=== PATIENT | female | born 1960 | race Caucasian/White ===

== ENCOUNTER → 2020-07-09 14:01 | Outpatient (BNVA) | payer OTHER, SELFPAY | PROVIDERS: PCP Internal Medicine; Visit Provider Hospitalist ==

== ENCOUNTER → 2020-07-31 13:59 | Outpatient (REF) | payer OTHER, SELFPAY | LOC: HO.SL 13:59 | PROVIDERS: PCP Internal Medicine; Visit Provider Hospitalist | DX: G47.33 Obstructive sleep apnea (adult) (pediatric) (principal) | CPT/HCPCS: 95806 ==

== ENCOUNTER → 2020-08-31 10:03 | Outpatient (BNVA) | payer OTHER, SELFPAY | PROVIDERS: PCP Internal Medicine; Visit Provider Hospitalist ==

== ENCOUNTER 2020-10-29 10:32 | Outpatient (REF) | payer OTHER, SELFPAY ==
--- NOTE | ~2020-10-29 | CT_ITS ---
EXAMINATION: CT CHEST WITHOUT CONTRAST CLINICAL INFORMATION: Other nonspecific abnormal finding of lung field. COMPARISON: CT chest 12/22/2018 TECHNIQUE: Multidetector volumetric CT imaging of the chest was done. Axial MIP volume rendering provided. Sagittal and coronal reformatted images were obtained. This CT examination was performed using dose optimization techniques as appropriate, variously including the following: *Automated exposure control *Adjustment of mA and/or kV according to patient size (this includes techniques or standardized protocols for targeted exams where dose is matched to indication/reason for exam; i.e. extremities or head) *Use of iterative reconstruction technique DLP: 189 mGy-cm FINDINGS: GRINDER NEEDLE TIP: Unremarkable. LUNGS: The lungs are well expanded and clear of acute pneumonic process. There is a punctate 1 mm calcified nodule left lung apex axial image 71/7. Minimal atelectatic changes are seen in the lingula. A 4 mm nodule is seen in the lingula axial image 391/7, 2 mm calcified nodule right lower lobe axial image 412/7 and a 2 mm calcified nodule right lung base axial image 483/7. No acute consolidation seen. MEDIASTINUM: The thyroid lobes are symmetrical and normal. The central trachea and the bronchi are widely patent. The heart size and the great vessels are normal caliber. There is no pericardial effusion. No abnormal sized mediastinal or hilar lymph nodes seen. The central trachea and the bronchi are widely patent. PLEURA: There is no pleural effusion. No pleural mass or thickening. AXILLA: There are benign lymph nodes seen in the axilla. UPPER ABDOMEN: Visualized liver, spleen, pancreas, and bilateral adrenal glands are unremarkable. No radiopaque gallstone seen. OSSEOUS STRUCTURES: No lytic or sclerotic process seen. There is mild ventral spondylosis at T9-T10 disc level. There is a posterior annular calcification at the T10-T11 disc level. CT/CT chest wo con IMPRESSION: There are small 2 mm calcified nodules scattered throughout both lungs likely granulomas, stable. There is a 4 mm noncalcified nodule in the lingula which is stable. No new nodules or lymph nodes seen.
== END 2020-10-29 10:33 | disposition home or self-care (01) ==
LOC: HO.CT 10:32
PROVIDERS: PCP Internal Medicine; Visit Provider Hospitalist
DX: R91.8 Other nonspecific abnormal finding of lung field (principal); J98.11 Atelectasis; R05 Cough
CPT/HCPCS: 71250

== ENCOUNTER 2020-11-14 13:43 | Outpatient (REF) | payer OTHER, SELFPAY ==
[2020-11-14 14:45] LABS: Influenza A PCR NEGATIVE (Negative); Influenza B PCR NEGATIVE (Negative); Resp Syncy Virus RNA Qual PCR NEGATIVE (Negative); SARS COV2 PCR INHOUSE NEGATIVE (Negative)
== END 2020-11-14 13:44 | disposition home or self-care (01) ==
LOC: HO.LNP 13:43
PROVIDERS: Visit Provider Family Medicine
DX: J02.9 Acute pharyngitis, unspecified (principal); Z20.822 Contact with and (suspected) exposure to COVID-19
CPT/HCPCS: 0241U

== ENCOUNTER → 2020-12-03 14:30 | Outpatient (BNVA) | payer OTHER, SELFPAY | PROVIDERS: PCP Internal Medicine; Visit Provider Hospitalist ==

== ENCOUNTER 2021-09-17 08:41 | Outpatient (REF) | payer OTHER, SELFPAY ==
--- NOTE | ~2021-09-17 | CT_ITS ---
EXAMINATION: CT CHEST WITHOUT CONTRAST CLINICAL INFORMATION: Nonspecific abnormal lung findings. COMPARISON: None TECHNIQUE: Multidetector volumetric CT imaging of the chest was done. Axial MIP volume rendering provided. Sagittal and coronal reformatted images were obtained. This CT examination was performed using dose optimization techniques as appropriate, variously including the following: *Automated exposure control *Adjustment of mA and/or kV according to patient size (this includes techniques or standardized protocols for targeted exams where dose is matched to indication/reason for exam; i.e. extremities or head) *Use of iterative reconstruction technique DLP: 299 mGy-cm FINDINGS: PROVIDER RELATIONS ADVOCATE: Unremarkable chest exam. LUNGS: The lungs are well-expanded. There is a 1 mm punctate nodule left upper lobe axial image 68/9 and right lower lobe 349/9. No additional nodules seen. There is no acute consolidation, mass or ground-glass density. MEDIASTINUM: The thyroid lobes are symmetric and normal. The central trachea and the bronchi are widely patent. The heart size and the great vessels are normal caliber. There is no pericardial effusion. No abnormal size mediastinal or hilar lymph nodes seen. PLEURA: There is no pleural effusion. No pleural mass or thickening. AXILLA: There are small shotty lymph nodes in the axilla. UPPER ABDOMEN: Visualized liver, spleen, pancreas and adrenal glands are unremarkable. No radiopaque gallstone seen. OSSEOUS STRUCTURES: There is no lytic or sclerotic process seen. CT/CT chest wo con IMPRESSION: Punctate calcifications in the right lower lobe and left upper lobe. Otherwise unremarkable CT chest exam. Fleischner guidelines were followed.
== END 2021-09-17 08:42 | disposition home or self-care (01) ==
LOC: HO.CT 08:41
PROVIDERS: PCP Internal Medicine; Visit Provider Hospitalist
DX: R91.8 Other nonspecific abnormal finding of lung field (principal)
CPT/HCPCS: 71250

== ENCOUNTER 2024-04-26 10:32 | Outpatient (AMB) | payer OTHER, SELFPAY ==
[2024-04-26 10:35] VITALS: BP 106/78; PULSE 84; O2SAT 97; BMI 32.5
--- NOTE | 2024-04-26 10:35 | MHC.OFFVIS ---
Vital Signs 04/26/24 10:35 Height 5 ft 5 in Weight 195 lb 1.745 oz BMI 32.5 BP 106/78 Blood Pressure Location Rt brachial Position Sitting Pulse 84 Pulse Source Pulse Oximeter Pulse Oximetry (%) 97 Oxygen Delivery Method Room Air Intake Visit Reasons: pulmonary nodule Allergies No Known Allergies Allergy (Verified 04/26/24 10:40) HPI Comments Details: The patient is a 63-year-old woman with a known history of tobacco dependency who presents with an abnormal CT scan of the chest. Numerous years ago she started developing worsening cough is some minimal dyspnea. She did undergo a CT scan of the chest demonstrating some areas of atelectasis primarily in the level of the lingula. No significant emphysema. She was able to quit smoking little less than 2 years ago. Since her initial CT scan in 2017 she did have a repeat CT scan in 2018. But, due to the pandemic she did not have a 1 in 2019. She did undergo another CT scan of the chest more recently May 2020 which was personally reviewed by me along with the others. It appears that now she has some slight interval worsening of the atelectatic /fibrotic area in the lingula. But now, there appears to be slight nodular density just adjacent to fibrotic area measuring 5-6mm in size. Based on that worsening of the fibrotic area but more concerning is the nodular density associated with it that we need to follow this area closely. The patient is high risk due to her smoking history. She has also noticed increasing cough specially at nighttime. She denies ever having any wheezing although she does have some congestion at times. Her CT scan does demonstrate areas of peribronchial thickening and bronchitis. She does not have any inhalers at this time I do think she should have a least short-acting beta agonists she can use as needed. On further questioning the patient does have daytime drowsiness. She has been having documented snoring and also apneic episodes. Her [place] score is elevated 12/24. The patient needs to have a home sleep study at this time. 08/31/2020 the patient is here for pulmonary follow-up visit. overall the patient is doing well. She continues to have daytime drowsiness with an elevated [place] score of 12/24. Did review her home sleep study demonstrating mild to moderate sleep apnea and significant tachycardia. Patient also has cardiovascular risk factors. The recommendation is for the patient to start CPAP therapy at this. We will set her up with a local [facility]. In the meantime she is concerned about the new nodular density found on her CT scan the chest from May 2020. will plan to do a CT scan 6 months from that 1 to follow-up this new nodular density. 12/03/2020 the patient is here for a pulmonary follow-up visit. Overall the patient has been doing well. She did start her CPAP therapy. However, she cannot tolerated. She has tried multiple settings and different masks without any success. She was asking about other alternatives as she continues to have an elevated [place] score of 12/24. We did talk about positional therapy specially since her sleep apnea as more significant when she is supine. In addition to that I do believe that if she does an oromandibular device in conjunction with a positional device that she would respond well to the therapy. Will make arrangements for her to be referred to a dentist that specializes in sleep devices. In the meantime the patient did have a repeat CT scan of the chest which I personally reviewed and reviewed with her. It appears that the nodular density and atelectasis in the lingula have almost completely resolved which is very reassuring. She still has small pulmonary nodules between 2-4 mm in size mostly calcified. At this point the patient does need to have follow-up CT scan in a year's time. 04/26/2024 the patient is here for a pulmonary follow-up visit. Overall the patient has been doing fairly good. She still struggling with the CPAP. She was not able to use it. She did get an oral mandibular device but that was not helpful either. Now she is on weight management medication to try to lose weight. Hopefully with that we can we repeat her sleep study in the near future to see if her sleep apnea is better. The meantime we did talk about positional therapy. She did have a repeat CT scan of the chest that Edy. We did personally reviewed and compared to her CT scan from 2020. She has multiple nodules larger on measuring 5 mm in the left upper lobe. I compared to 2020 it was initially difficult to see because she had a little airspace disease in 2020 and seem like the airspace disease cleared up. Now the nodules a little bit more clearly seen. Is still around 5 mm in size. Will have to repeat the CT scan in a year from the last 1. The patient also complains of a cough. The cough is tends to be worse when she lays flat to going to bed. We did talk about reflux disease and also talked about postnasal drip. The patient is okay using nasal steroid spray I will send to the pharmacy. She should also sleep elevated and continue with the reflux diet. [facility] Medical History (Updated 04/26/24 @ 21:31 by Raj Mendez MD) JUVENAL (obstructive sleep apnea) Atelectasis Pulmonary nodules Cough Social History (Updated 04/26/24 @ 10:40 by Alyssa Garza CMA) Patient Tobacco Use Status: Former Tobacco user Years Smoked: 25 years Review of Systems Const Reports daytime sleepiness, Denies night sweats and Reports snoring ENT Denies change in voice, Denies lip swelling, Denies mouth pain, Reports nasal congestion, Reports nasal discharge and Denies tongue swelling Card Denies chest pain Resp Reports cough and Reports snoring GI Denies abdominal pain Musc Denies no additional complaints Neuro Denies Neuro-related abnormal movements Psych Denies no additional complaints Chad/Lymph Denies easy bleeding and Denies lymphadenopathy Aller/Immun Denies lip swelling and Denies tongue swelling Physical Exam Vital Signs: Last Vital Signs Pulse 84 04/26/24 10:35 BP 106/78 04/26/24 10:35 Pulse Ox 97 04/26/24 10:35 Oxygen Delivery Method Room Air 04/26/24 10:35 BMI result Body Mass Index 32.5 Const General: alert Eyes Pupils: Equal, round and reactive pupils present Neck Neck: Yes normal visual inspection, Yes full ROM and Yes no lymphadenopathy Chest Chest palpation & inspection: normal inspection of the chest Resp Auscultation: diminished lung sounds Cardio Rate: regular rate Rhythm: regular rhythm Heart sounds: S1 normal heart sound present and S2 normal heart sound present GI Palpation (GI): Soft to palpation and nontender Auscultation: normal bowel sounds Skin General skin exam: rashes and/or lesions noted Neuro Cranial nerves: Yes Equal, round and reactive pupils present Assessment & Plan Assessment & Plan (1) JUVENAL (obstructive sleep apnea): Code(s): G47.33 - Obstructive sleep apnea (adult) (pediatric) Category: Medical (2) Atelectasis: Code(s): J98.11 - Atelectasis Category: Medical Plan: improved on her last ct chest (3) Pulmonary nodules: Code(s): R91.8 - Other nonspecific abnormal finding of lung field Category: Medical (4) Cough: Code(s): R05 - Cough Category: Medical Qualifiers: Cough type: chronic Qualified Code(s): R05.3 - Chronic cough Plan Failed CPAP therapy, does not tolerate it. Posiitonal therapy CT chest 1 year ALBARO as needed F/U 1 year Orders: Orders CT chest wo IV con 03/13/25 R91.8 - Other nonspecific abnormal finding of lung field Medications: New fluticasone propionate 50 mcg/actuation 2 sprays intranasal DAILY 30 days 15.8 mL 11RF J31.0 - Chronic rhinitis, R91.8 - Other nonspecific abnormal finding of lung field Coding Level of Care Code Est Pt Level 4 (71580) Diagnoses JUVENAL (obstructive sleep apnea) G47.33 Atelectasis J98.11 Pulmonary nodules R91.8 Chronic cough R05.3 Cough type: chronic Time Spent (min) 17
--- OUTSIDE RECORDS SUMMARY | 2024-04-26 11:32 | XMS_ITS | Encounter Summary ---
Author Organization [facility] Address [address] [place] [address] Care Team Providers Care Boat Hoist Operator Helper Name Role Phone Justin Espinoza MD Primary Care Provider [phone] Encounter Details Date Type Department Care Team (Late st Contact Info) Description 12/28/2023 9:34 AM EDT Hospital Encounter TH HISTORIC ENCOUNTERS EASTERN CONVERSION ONLY Social History Tobacco Use Types Packs/Day Years Used Date Smoking Tobacco: Former Alcohol Use Standard Drinks/Week Comments Yes 8.3 (1 standard drink = 0.6 oz p ure alcohol) Comments Unknown Sex and Gender Information Value Date Recorded Sex Assigned at Female 2023 10:41 AM EDT Legal Sex Female 4:53 PM EST Gender Identity Female 2023 10:41 AM EDT Sexual Orientation Straight 2023 10 :41 AM EDT documented as of this encounter Last Filed Vital Signs Vital Sign Reading Time Taken Comments Blood Pressure - - Pulse - - Temperature - - Respiratory Rate - - Oxygen Saturation - - Inhaled Oxygen Concentration - - Weight 87 kg (191 lb 12.8 oz) 07/13/2023 9:34 AM EDT Height - - Body Mass Index - - documented in this encounter Progress Notes * Historical, Notes Results - 12/28/2023 10:00 AM EDT 1000- Patient arrives, ambulatory to unit for every 8 week Entyvio infusion. She reports feeling well. Denies any new issues with her bowels and feels everything is the same. Denies any recent diarrhea, pain, bloating, etc. Patient has no questions or concerns at this time. Medication released from treatment plan to pharmacy. Peripheral IV established without difficulty and flushed/saline locked for later use. Patient remains comfortable in recliner watching TV. 1033- IV flushed and 250 mls NS flush bag hung, then Entyvio hung, infusing over 30 minutes per protocol. Patient comfortable in recliner and has call meyers in reach. ?? 1119- Completed the remainder of the Entyvio without any difficulty. Peripheral IV removed, pressure dressing applied to site. Next appointment booked previously but re-printed and given to patient at discharge per her request. She left the unit stable, ambulatory without questions or concerns. documented in this encounter Plan of Treatment Upcoming Encounters Date Type Department Care Team (Late st Contact Info) Description 05/02/2024 9:00 AM EST Appointment [facility] Ultrasound [address] [place] [address] 06/13/2024 9:30 AM EDT Appointment [facility] Infusion Center [address] [facility] [address] [place] [address] Constantine Santos MD [address] [address] documented as of this encounter Visit Diagnoses Not on filedocumented in this encounter Care Teams Boat Hoist Operator Helper Relationship Specialty Start Date End Date Justin Espinoza MD [address] [place] [id number] PCP - General 09/30/12 documented as of this encounter
--- OUTSIDE RECORDS SUMMARY | 2024-04-26 11:32 | XMS_ITS | Clinical Summary ---
Author Organization [facility] Address [address] [place] [address] Care Team Providers Care Implementation Manager Name Role Phone Justin Espinoza MD Primary Care Provider + [phone] Allergies No known active allergies Medications Medication Sig Dispensed Refills Start Date End Date Status ALPRAZolam (XANAX) 0.5 MG tablet alprazolam 0.5 mg tablet TAKE 1 TABLET BY MOUTH EVERY 12 HOURS NEEDED 0 03/12/2015 Active rosuvastatin (CRESTOR) tablet 20 mg 0 08/07/2022 Active levothyroxine (SYNTHROID) tablet 88 mcg levothyroxine 88 mcg tablet TAKE 1 TABLET BY MOUTH EVERY DAY 0 08/18/2021 Active lisinopril (PRINIVIL,ZESTRIL) tablet 20 mg lisinopril 20 mg tablet TAKE 1 TABLET BY MOUTH EVERY DAY 0 12/16/2016 Active ursodiol (ACTIGALL) 500 MG tablet ursodiol 500 mg tablet TAKE 2 TABLETS BY MOUTH EVERY DAY 0 02/27/2015 Active DULoxetine (CYMBALTA) DR capsule 60 mg duloxetine 60 mg capsule,delayed release TAKE 1 CAPSULE BY MOUTH EVERY DAY 0 02/22/2015 Active RABEprazole (ACIPHEX) 20 MG tablet rabeprazole 20 mg tablet,delayed release TAKE 1 TABLET BY MOUTH EVERY DAY 0 03/10/2009 Active vedolizumab (Entyvio) 300 MG SOLR injection Entyvio 300 mg intravenous solution every other month 0 03/10/2013 Active semaglutide-weight management (Wegovy) 0.25 MG/0.5ML subcutaneous auto-injector Inject under the skin. 0 Active Active Problems Problem Noted Date Diagnosed Date Crohn disease 08/08/2022 Social History Tobacco Use Types Packs/Day Years Used Date Smoking Tobacco: Never Assessed Sex and Gender Information Value Date Recorded Sex Assigned at Female 08/05/2022 4:33 PM EDT Gender Identity Female 05/18/2023 3:22 PM EDT Sexual Orientation Straight 05/18/2023 3: 22 PM EDT Job Start Date Occupation Industry Not on file Not on file Not on file Last Filed Vital Signs Vital Sign Reading Time Taken Comments Blood Pressure 112/72 12/28/2023 9:43 AM EDT Pulse 76 12/28/2023 9:43 AM EDT Temperature 36.9 ??C (98.4 ??F) 12/28/2023 9:43 AM ED T Respiratory Rate 16 12/28/2023 9:43 AM EDT Oxygen Saturation 97% 12/28/2023 9:43 AM EDT Inhaled Oxygen Concentration - - Weight 87 kg (191 lb 12.8 oz) 07/13/2023 9:34 AM EDT Height - - Body Mass Index - - Plan of Treatment Health Maintenance Due Date Last Done Comments Hepatitis C Screening 1960 COVID-19 Vaccine (#1) 07/01/1963 Depression Screening 1974 Preventative Health Evaluation 1980 DTap / Tdap / Td (1 - Tdap) 1981 Cervical Cancer Screening (Pap Smear) 12/31/1983 Colon Cancer Screening (Colonoscopy) 12/31/2007 Breast Cancer Screening (Mammogram) 2012 Shingrix-Zoster Vaccine (1 o f 2) 2012 Influenza Vaccine (#1) 2023 0, 03/27/2015 RSV Adult > 60+ Yrs or (1 - 1-dose 75+ series) 2037 Hepatitis B Vaccines Aged Out No long er eligible based on patient's age to complete this topic Pneumococcal Vaccine Aged Out No long er eligible based on patient's age to complete this topic RSV Ped < 20 months Aged Out No longe r eligible based on patient's age to complete this topic Care Teams Implementation Manager Relationship Specialty Start Date End Date Justin Espinoza MD [address] [facility] [address] [place] [address] PCP - General Internal Medicine 07/30/22
--- OUTSIDE RECORDS SUMMARY | 2024-04-26 11:32 | XMS_ITS | Clinical Summary ---
Author Organization [facility] Address [address] [place] [address] Care Team Providers Care Disc Recordist Name Role Phone Pcp, No Primary Care Provider Unavailabl e Social History Tobacco Use Types Packs/Day Years Used Date Smoking Tobacco: Never Assessed Sex and Gender Information Value Date Recorded Sex Assigned at Not on file Gender Identity Not on file Sexual Orientation Not on file Plan of Treatment Health Maintenance Due Date Last Done Comments Hepatitis C Virus Screening 1962 HIV Screening 12/31/1975 DTaP/Tdap/Td Vaccines (1 - Tdap) 1981 Pneumococcal Vaccines 50+ (1 of 1 - PCV) 2012 Zoster (Shingles) Vaccine (1 of 2) 2012 COVID-19 Vaccine (1 - 2023-2 5 season) 2023 RSV Vaccine 60 years and old er and Patients (1 - 1-dose 75+ series) 2037 Hepatitis B Vaccines Aged Out No long er eligible based on patient's age to complete this topic Pneumococcal Vaccine: Pediat bettina (0-5 Years) and At-Risk Patients (6 to 49 Years) Aged Out No longer eligible b ased on patient's age to complete this topic Care Teams Disc Recordist Relationship Specialty Start Date End Date Pcp, No [address] [place] [address] PCP - General 07/14/20
--- OUTSIDE RECORDS SUMMARY | 2024-04-26 11:32 | XMS_ITS | Data Portability ---
Author Organization [place] - [facility],, RE CLEMENTS MD Address [address] [address] Care Team Providers Care Group Activities Aide Name Role Phone NICOLE ROPER Primary Care Provider Assessment No assessment recorded. Plan of Treatment Reminders Order Date Submit Date Provider Last Modified By Organization Details Last Modified Time Details Appointments ANNUAL EXAM 2024 10:00A M Re Clements MD Not available Not available Not available Lab wet mount, vaginal 2024 025 [email or web address] 1 In-Office Order, Internal Use Only DO Not Attach Compendium DO Not Attach Compendium, Do Not Delete/merge, [id number] 03/11/2024 10:24:27 pap test, thinprep , cervical 2022 023 [email or web address] [facility], [address] [place], [address], 02/10/2023 07:32:39 pap test, thinprep , cervical 2021 022 [email or web address] [facility], Cytopathology Service, [address] [place], [address], 08/26/2021 07:42:26 urinalys is, dipstick 2021 022 [email or web address] 1 In-Office Order, Internal Use Only DO Not Attach Compendium DO Not Attach Compendium, Do Not Delete/merge, [id number] 08/12/2021 17:17:49 culture, urine 2021 022 [facility], [address] [place], [address], 08/13/2021 12:42:06 pap test, thinprep , cervical 2019 020 [email or web address] [facility], Cytopathology Service, [address] [place], [address], 02/20/2020 07:54:15 Referral None recorded . Procedures None recorded . Surgeries None recorded . Imaging bone density 2022 023 [facility] Orders, [address], [place], [address], 01/22/2024 07:27:48 MAMMO, screenin g, digital, bilatera l - Breast Aspirati on and/or Biopsy if needed 2022 023 [facility] Orders, [address], [place], [address], 01/22/2024 07:27:48 MAMMO, screenin g, digital, bilatera l 2021 022 [facility], [address] [place], [address], 12/05/2022 07:28:36 MAMMO, screenin g, digital, bilatera l 2019 020 [facility] (Mammography), [address] [place], [address], 02/07/2021 07:23:27 Medication Orders terconaz ole 0.4 % vaginal cream 2024 025 [facility] #[id number], [address] [facility], [place], [address], 03/11/2024 10:27:24 triamcin olone acetonid e 0.1 % topical ointment 2024 025 [facility]/Pharmacy #[id number], [address] [facility], [place], [address], 03/11/2024 10:24:29 Patient TargetsNo targets recorded. Patient Instructions Encounter Date Encounter Id Patient Instructions Last Modified By Organization Details Last Modified Time 02/13/2020 [id number] Quitting Tobacco : Care Instructions Not available 02/13/2020 15:25:07 learning about healthy weight Not available 02/13/2020 15:25:07 crohn's disease: care instructions Not available 02/13/2020 15:25:23 She is here as a new patient for annual exam. She had a supracervical hysterectomy in the remote past for bleeding issues which worked well for her. No significant vasomotor symptoms. Mild nocturia. She has Crohn's, has an annual colonoscopy. 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 She appears to be doing well. She is advised to get 1500 mg of calcium daily into her diet and supplements combined. We discussed the benefits of adequate vitamin D supplementation to at least 400 units daily, daily aerobic exercise of 30 minutes, and stress reduction. Monthly self breast exam was taught, and stressed, and is advised to call if she discovers any new mass in the breast. Not available 02/13/2020 15:27:11 08/12/2021 [id number] learning about healthy weight Not available 08/12/2021 15:41:56 She is here for annual exam, is doing well but for the past 3 days has had suprapubic vague discomfort, has Crohn's and wonders if it is that. Has had a hysterectomy. No fevers or chills. note from 2020: She is here as anew patient for annual exam. She had a supracervical hysterectomy in the remote past for bleeding issues which worked well for her. No significant vasomotor symptoms. Mild nocturia. She has Crohn's, has an annual colonoscopy. 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 Urine dip has small amount of leuk, check culture. She is advised her symptoms could be GI, and to follow up with her GI doctor to see if this could be Crohn's or diverticulitis. We will let her know the results of the urine culture. She has no dysuria, hematuria, frequency or urgency. She appears to be doing well. She is advised to get 1500 mg of calcium daily into her diet and supplements combined. We discussed the benefits of adequate vitamin D supplementation to at least 400 units daily, daily aerobic exercise of 30 minutes, and stress reduction. Monthly self breast exam was taught, and stressed, and is advised to call if she discovers any new mass in the breast. [email or web address] Not available 08/12/2021 17:19:41 01/27/2023 [id number] learning about healthy weight [facility] Not available 01/27/2023 08:24:33 She is here for annual, doing well, going to retire this year. ___ Note from 2021: She is here for annual exam, is doing well but for the past 3 days has had suprapubic vague discomfort, has Crohn's and wonders if it is that. Has had a hysterectomy. No fevers or chills. She appears to be doing well. Monthly self breast exam was taught, and stressed, and is advised to call if she discovers any new mass in the breast. check baseline bone density. [email or web address] Not available 01/27/2023 08:26:01 03/11/2024 [id number] vaginal yeast infection: care instructions [facility] Not available 03/11/2024 10:24:27 She is here for a one year history of worsening vulvar discomfort , pruritus, and occasional burning pain and dysuria. Wet alexander show yeast, I called in the diflucan but then she notes that makes her nauseous so we changed it to terazol 7. Rx aristocort for symptomatic lichen sclerosis, she is overdue for annual so will return next month for that and we can reassess at that time. If not improving enough then may consider adding in estradiol vaginal cream for the atrophy. All this was explained in detail, all questions answered. Face to face discussion, chart review and coordination of care: 25 minutes heydi Not available 03/11/2024 11:02:00 Reason for Referral None Reported. Results Created Date Observation Date Name Description Value Unit Range Abnormal Flag Note LastModifiedBy Organization Detail LastModifiedTime 02/13/20 20 02/13/2020 pap test, thinp rep, cervi bree [id number] ThinP rep Pap, Image d: NEGAT MIA FOR SQUAM OUS INTRA EPITH ELIAL LESIO N AND MALIG ARLENE . Atrop hy. Kathl een Keith a , CT( CP) (Case elect jessica rogers risa d 02 15 2020) ADEQU ACY: Satis facto ry . SOURC E: ThinP rep Pap HPV IF ASCUS , Cervi bree, Image d CLINI BREE INFOR MATIO N: HPV If Diagn osis of ASCUS . HYSTE RECTO MY, CERVI X IN PLACE . Z12.4 Not Available [facility] Cytopathology Service [address] [place], [address], 02/15/2020 12:21:02 08/13/19 22 08/12/2021 URINE CULTU RE comments [facility] maggy villegas, a membe r of [employer]án [place] [address] Medic al Direc teri soto MD [facility] E: URINE ,YARIEL N CATCH ; Not Available [facility] [address] [place], [address], 08/13/2021 12:42:06 08/13/19 22 08/13/2021 URINE CULTU RE urine culture [facility] maggy villegas, a membe r of [facility] [address] Streetjulián [place] [address] Medic al Direc MD ALEJANDRA Herrera CTION TIME: 022 3:00: 00 PM -04:0 0 URINE CULTU RE <10,0 00 CFU/m L F URINE CULTU RE LEV L SKIN/ UROGE NITAL SAGRARIO PRESE NT. F Not Available [facility] [address] [place], [address], 08/13/2021 12:42:06 08/13/19 22 08/12/2021 PAP1C ASE [email or web address] ThinP rep Pap, Image d: NEGAT MIA FOR SQUAM OUS INTRA EPITH ELIAL LESIO N AND MALIG ARLENE . React mia cellu lar osborn es. Atrop hy with infla mmati on is prese nt. Abund ant parti ally obscu ring acute infla mmato ry cells are prese nt. Jaswinder Felix r , CT( CP) (Case Scree isha 08 21 2021) Ernie layne M.D. , Patho logis t (Case elect jessica rogers risa d 08 22 2021) ADEQU ACY: Satis facto ry Endoc ervic al/tr ansfo rmati on zone compo nent prese nt. SOURC E: ThinP rep Pap HPV IF Ascus : Refle x 16 and 18, Cervi bree, Image d CLINI BREE INFOR MATIO N: HPV If Diagn osis of ASCUS . Hyst- cx in place , Z12.4 Not Available [facility] Cytopathology Service [address] [place], [address], 08/23/2021 08:01:08 08/13/19 22 08/12/2021 urina lysis , dipst ick GLU Negati ve Not Available In-Office Order Internal Use Only DO Not Attach Compendium DO Not Attach Compendium, Do Not Delete/merge, [id number] 08/12/2021 15:42:13 08/13/19 22 08/12/2021 urina lysis , dipst ick RICHARD Negati ve Not Available In-Office Order Internal Use Only DO Not Attach Compendium DO Not Attach Compendium, Do Not Delete/merge, [id number] 08/12/2021 15:42:13 08/13/19 22 08/12/2021 urina lysis , dipst ick KET Negati ve Not Available In-Office Order Internal Use Only DO Not Attach Compendium DO Not Attach Compendium, Do Not Delete/merge, 08/12/2021 15:42:13 08/13/19 22 08/12/2021 urina lysis , dipst ick SG 1.020 Not Available In-Office Order Internal Use Only DO Not Attach Compendium DO Not Attach Compendium, Do Not Delete/merge, 08/12/2021 15:42:13 08/13/19 22 08/12/2021 urina lysis , dipst ick BLO Negati ve Not Available In-Office Order Internal Use Only DO Not Attach Compendium DO Not Attach Compendium, Do Not Delete/merge, 08/12/2021 15:42:13 08/13/19 22 08/12/2021 urina lysis , dipst ick pH 5.0 Not Available In-Office Order Internal Use Only DO Not Attach Compendium DO Not Attach Compendium, Do Not Delete/merge, 08/12/2021 15:42:13 08/13/19 22 08/12/2021 urina lysis , dipst ick PRO Negati ve Not Available In-Office Order Internal Use Only DO Not Attach Compendium DO Not Attach Compendium, Do Not Delete/merge, 08/12/2021 15:42:13 08/13/19 22 08/12/2021 urina lysis , dipst ick URO 0.2 E.U. / dl Not Available In-Office Order Internal Use Only DO Not Attach Compendium DO Not Attach Compendium, Do Not Delete/merge, 08/12/2021 15:42:13 08/13/19 22 08/12/2021 urina lysis , dipst ick NIT negati ve Not Available In-Office Order Internal Use Only DO Not Attach Compendium DO Not Attach Compendium, Do Not Delete/merge, 08/12/2021 15:42:13 08/13/19 22 08/12/2021 urina lysis , dipst ick BARBARA Small Not Available In-Office Order Internal Use Only DO Not Attach Compendium DO Not Attach Compendium, Do Not Delete/merge, 08/12/2021 15:42:13 08/14/19 22 08/13/2021 URINE CULTU RE comments [facility] at[facility] es, a membe r of [facility] [address] [place] [address] Medic al [facility] teri soto MD SOURC E: URINE ,YARIEL N CATCH ; Not Available [facility] [address] [place] [address], [address], 08/14/2021 14:21:58 08/14/19 22 08/14/2021 URINE CULTU RE urine culture [facility], a membe r of [facility] [address] [place], [place] [address] Medic al [facility] teri soto MD [facility] CTION TIME: 022 2:00: 00 PM -04:0 0 URINE CULTU RE <10,0 00 CFU/m L F URINE CULTU RE MIXED GROWT H F URINE CULTU RE SUGGE STIVE OF POSSI BLE CONTA MINAT ION DURIN G COLLE CTION . F URINE CULTU RE SUGGE ST APPRO PRIAT E RECOL LECTI ON IF CLINI FELY INDIC ATED. F Not Available [facility] [address] [place] [address], [address], 08/14/2021 14:21:58 01/28/20 23 01/27/2023 [facility] CYTOL OGY results Mollygarcia nt Name: COSME FLOWERS nt : [birth year] (Age: 62) Lab Acces yelitza #: [id number] Colle ction Date: 01/27 Acces yelitza Date: 01/27 Sign Out Date: 02/04 Tissu e Sourc e: 1: THINP REP GUIDE PAP TEST, CERVI BREE: Final Diagn osis: NEGAT MIA FOR INTRA EPITH ELIAL LESIO N OR MALIG ARLENE . Atrop hy. Satis facto ry for evalu ation . Clini bree Histo ry: Date of Last Menst rual Perio d: not avail able Menst rual Histo ry: Post- menop ausal Contr acept mia Histo ry: not avail able Ancil royal Testi ng: HPV (ASCU S) Case image d by the ThinP rep Blazei ng Systgarcia m with azeb ramos or marito washing[place] Perfo rmed at [facility] ate Refer ence Labor atory depar tment of Cytol ogy, [address] Ravindra bella [place] Clini bree Histo ry (othe r): Z01.4 19, ROUTI NE SCREE N, LPS 08/12 NEG Phone #: [phone], On-Ca ll Patho logis t: [id number] Not Available [facility] [address], [place], [place], [address], 02/04/2023 13:49:55 03/11/1903/11/2024 wet mount , vagin al Clue Cells negati ve Not Available In-Office Order Internal Use Only DO Not Attach Compendium DO Not Attach Compendium, Do Not Delete/merge, 03/11/2024 10:22:09 03/11/19 25 03/11/2024 wet mount , vagin al Trichomonas negati ve Not Available In-Office Order Internal Use Only DO Not Attach Compendium DO Not Attach Compendium, Do Not Delete/merge, 03/11/2024 10:22:09 03/11/1903/11/2024 wet mount , vagin al Hyphae positi ve Not Available In-Office Order Internal Use Only DO Not Attach Compendium DO Not Attach Compendium, Do Not Delete/merge, 03/11/2024 10:22:09 03/11/19 25 03/11/2024 wet mount , vagin al atrophic epithelium positi ve Not Available In-Office Order Internal Use Only DO Not Attach Compendium DO Not Attach Compendium, Do Not Delete/merge, 03/11/2024 10:22:09 07/16/19 22 07/15/2021 MAMMO , scree sherlyn, digit al, bilat eral No observ ation record ed. [facility] [address], [place], [address], 07/15/2021 09:25:35 12/31/19 23 2022 MAMMO , scree sherlyn, digit al, bilat eral No observ ation record ed. [facility] [place] [address] [place], [address], 2022 08:33:42 04/08/19 25 04/08/2024 MAMMO , scree sherlyn, digit al, bilat eral No observ ation record ed. [facility] [place] [address] [place], [address], 04/10/2024 19:14:04 Result Notes None recorded. Problems Name Problem SNOMED Code Status Onset Date Resolution Date Notes Provider Name and Address Organization Details Recorded Time Hypothyroidism 51795009 Active 2019 Lashawn zamora [place] - [facility], 0 11:43:26 Hypertensive disorder 64039071 Active 2019 Lashawn zamora [place] - [facility], 0 11:43:52 Crohn's disease 52172653 Active 2019 Lashawn zamora [place] - [facility], 0 11:44:06 Genital lichen sclerosus 482988915 Active 2024 Re Clements MD [address] [place] [address],[facility] [address], [place], [address] [facility] [place] - [facility], 5 10:23:17 Problem Notes None recorded. Procedures Surgical History Date Name Laterality Status Provider Name and Address Organization Details Recorded Time 12/10/19 23 Most Recent Mammogram completed Lashawn Butt [place] - [facility], 01/27/2023 08:07:34 01/08/20 22 procedure on ankle completed Lashawn Butt [place] - [facility], 01/27/2023 08:06:33 03/18/19 17 back fusion completed Lashawn Butt [place] - [facility], 01/03/2020 11:49:59 10/01/19 13 hysterectomy completed Lashawn Penaloza in [facility], 01/03/2020 11:53:56 01/18/20 11 repair of anal sphincter completed Lashawn Penaloza in [facility], 01/03/2020 11:52:53 01/06/19 82 delivery completed Lashawn Penaloza in [facility], 01/03/2020 11:54:16 primary decompression of posterior fossa and upper cervical spinal cord and instrumentation completed Lashawn Penaloza in [facility], 01/03/2020 11:51:56 Imaging Results Imaging Date Name Status LastModified by Organiz ation Details LastModified Time 07/15/2021 MAMMO, screening, digital, bilateral completed [address] [facility] [address], [address], 07/15/2021 09:25:35 2022 MAMMO, screening, digital, [email or web address] [place] [address], [place], [address], 2022 08:33:42 04/08/2024 MAMMO, screening, digital, bilateral [facility] [address] [facility] [place] [address], [place], [address], 04/10/2024 19:14:04 Procedure Notes None recorded. Medical Equipment None Reported. Allergies No known drug allergies Medications Name Sig Start Date Stop Date Status Note LastModified by Organization Details LastModified Time cyclobenzap rine 10 mg tablet TAKE 1 TAB DAILY AT BEDTIME NEEDED FOR MUSCLE SPASM [id number] DONT DRINK ALCOHOL OR DRIVE WHILE ON 03/11 completed Not Available Not Available Not Available atorvastati n 40 mg tablet TAKE 1 TABLET BY MOUTH EVERY DAY 08/12 completed Not Available Not Available Not Available terconazole 0.4 % vaginal cream Insert 1 applicato rful every day by vaginal route for 7 days. active Not Available Not Available No t Available rabeprazole 20 mg tablet,etta yed release TAKE 1 TABLET BY MOUTH EVERY DAY active Not Available Not Available No t Available cetirizine 10 mg tablet TAKE 1 TABLET BY MOUTH EVERY DAY FOR 14 DAYS 01/27 completed Not Available Not Available Not Available pravastatin 40 mg tablet TAKE 1 TABLET BY MOUTH EVERY DAY 08/12 completed Not Available Not Available Not Available fluconazole 150 mg tablet TAKE 1 TABLET BY MOUTH FOR 1 DOSE IF SYMPTOMS OF YEAST INFECTION 08/12 completed Not Available Not Available Not Available valacyclovi r 1 gram tablet TAKE 1 TABLET ORALLY THREE TIMES DAILY ONLY FOR 7 DAYS 03/11 completed Not Available Not Available Not Available lisinopril 20 mg tablet TAKE 1 TABLET BY MOUTH EVERY DAY active Not Available Not Available No t Available prednisone 20 mg tablet TAKE 2 TABLETS BY MOUTH EVERY DAY FOR 4 DAYS 03/11 completed Not Available Not Available Not Available sulfamethox azole 800 mg-trimetho prim 160 mg tablet TAKE 1 TABLET EVERY 12 HOURS BY MOUTH FOR 7 DAYS. 08/12 completed Not Available Not Available Not Available aspirin 81 mg tablet,etta yed release TAKE 1 TABLET BY MOUTH EVERY DAY 03/11 completed Not Available Not Available Not Available levothyroxi ne 75 mcg tablet TAKE 1 TABLET BY MOUTH EVERY DAY 08/12 completed Not Available Not Available Not Available levothyroxi ne 88 mcg tablet TAKE 1 TABLET BY MOUTH EVERY DAY active Not Available Not Available No t Available alprazolam 0.5 mg tablet TAKE 1 TABLET BY MOUTH EVERY DAY FOR 30 DAYS active Not Available Not Available No t Available amoxicillin 875 mg tablet TAKE 1 TABLET BY MOUTH TWICE A DAY 08/12 completed Not Available Not Available Not Available doxycycline monohydrate 100 mg capsule TAKE 1 CAPSULE BY MOUTH TWICE A DAY FOR 10 DAYS 01/27 completed Not Available Not Available Not Available cephalexin 500 mg capsule TAKE 1 CAPSULE BY MOUTH EVERY 12 HOURS FOR 7 DAYS 03/11 completed Not Available Not Available Not Available erythromyci n 5 mg/gram (0.5 %) eye ointment APPLY 1 APPLICATI ON TO EYE(S) 3 TIMES A DAY FOR 5 DAYS 03/11 completed Not Available Not Available Not Available triamcinolo ne acetonide 0.1 % topical ointment Apply 1 applicati on twice a day by topical route for 30 days. active Not Available Not Available No t Available montelukast 10 mg tablet TAKE 1 TABLET BY MOUTH EVERYDAY AT BEDTIME 08/12 completed Not Available Not Available Not Available nystatin 100,000 unit/gram topical powder APPLY 1 GRAM ON THE SKIN TWICE A DAY 01/27 completed Not Available Not Available Not Available methylpredn isolone 4 mg tablets in a dose pack TAKE 6 TABLETS ON DAY 1 DIRECTED ON PACKAGE AND DECREASE BY 1 TAB EACH DAY FOR A TOTAL OF 6 DAYS 08/12 completed Not Available Not Available Not Available albuterol sulfate HFA 90 mcg/actuati on aerosol inhaler INHALE 2 PUFFS EVERY 6 HOURS NEEDED FOR SHORTNESS OF BREATH OR WHEEZING 08/12 completed Not Available Not Available Not Available celecoxib 100 mg capsule TAKE 1 CAPSULE BY MOUTH TWICE A DAY 03/11 completed Not Available Not Available Not Available fluticasone propionate 50 mcg/actuati on nasal spray,suspe nsion SPRAY 2 SPRAYS INTO EACH NOSTRIL DAILY FOR 5 DAYS 01/27 completed Not Available Not Available Not Available oxycodone 5 mg tablet TAKE 1-2 TABLETS (5-10 MG TOTAL) BY MOUTH EVERY 6 (SIX) HOURS NEEDED. PARTIAL FILL OK 03/11 completed Not Available Not Available Not Available coenzyme Q10 100 mg capsule TAKE 1 CAPSULE BY MOUTH TWICE A DAY 08/12 completed Not Available Not Available Not Available rosuvastati n 10 mg tablet TAKE 1 TABLET BY MOUTH EVERY DAY 08/12 completed Not Available Not Available Not Available rosuvastati n 20 mg tablet TAKE 1 TABLET BY MOUTH EVERY DAY active Not Available Not Available No t Available nitrofurant oin monohydrate /macrocryst als 100 mg capsule TAKE 1 CAPSULE BY MOUTH TWICE A DAY FOR 5 DAYS 03/11 completed Not Available Not Available Not Available duloxetine 60 mg capsule,del ayed release TAKE 1 CAPSULE BY MOUTH EVERY DAY active Not Available Not Available No t Available ursodiol 500 mg tablet TAKE 2 TABLETS BY MOUTH EVERY DAY active Not Available Not Available No t Available magnesium gluconate 27 mg magnesium (500 mg) tablet TAKE 1 TABLET BY MOUTH EVERY DAY 01/27 completed Not Available Not Available Not Available diclofenac 1 % topical gel APPLY 2 GRAMS (TOPICAL) 4 TIMES PER DAY FOR 10 DAYS 03/11 completed Not Available Not Available Not Available QNASL 80 mcg/actuati on nasal aerosol spray USE 2 SPRAYS IN EACH NOSTRIL EVERY DAY 01/27 completed Not Available Not Available Not Available Entyvio 300 mg intravenous solution active Not Available Not Available Not Available Plenvu 140 gram-9 gram-5.2 gram powder packs TAKE 3 PACKET BY MOUTH DIRECTED FOLLOW INSTRUCTI ONS PROVIDED BY DOCTOR IN OFFICE active Not Available Not Available No t Available Wegovy 1 mg/0.5 mL subcutaneou s pen injector 01/27 completed Not Available Not Available Not Available Wegovy 0.25 mg/0.5 mL subcutaneou s pen injector INJECT 0.5ML UNDER THE SKIN ONCE EVERY WEEK 03/11 completed Not Available Not Available Not Available Wegovy 0.5 mg/0.5 mL subcutaneou s pen injector 03/11 completed Not Available Not Available Not Available Zepbound 2.5 mg/0.5 mL subcutaneou s pen injector INJECT 0.5ML SUBCUTANE OUSLY ONE TIME PER WEEK active Not Available Not Available No t Available Vitals Date Recorded Body height Body mass index (BMI) Body weight Body temperature Heart rate Systolic blood pressure Diastolic blood pressure Provider Name and Address Organization Details Last Updated DateTime 0 165.1 cm 33.5 kg/m2 27381.2 2 g 98.6 [degF] 97 /min 140 mm[Hg] 90 mm[Hg] Earlene Penaloza in [facility], 0 15:04:21 Date Recorded Body temperature Body height Heart rate Systolic blood pressure Diastolic blood pressure Provider Name and Address Organization Details Last Updated DateTime 08/12/2021 98.1 [degF] 165.1 cm 87 /min 134 mm[Hg] 85 mm[Hg] Lashawn Penaloza in [facility], 2 15:22:40 Date Recorded Body height Body mass index (BMI) Body weight Body temperature Heart rate Systolic blood pressure Diastolic blood pressure Provider Name and Address Organization Details Last Updated DateTime 3 165.1 cm 30.8 kg/m2 06378.3 1 g 98.3 [degF] 92 /min 140 mm[Hg] 89 mm[Hg] Lashawn Penaloza in [facility], 3 08:01:10 Date Recorded Body height Body mass index (BMI) Body weight Heart rate Systolic blood pressure Diastolic blood pressure Provider Name and Address Organization Details Last Updated DateTime 5 165.1 cm 32.4 kg/m2 04626.5 1 g 86 /min 131 mm[Hg] 90 mm[Hg] Lashawn Penaloza in [facility], 5 10:05:57 Social History Question Answer Notes LastModified by Organizat ion Details LastModified Time Tobacco Smoking Status Former Smoker ZHANG Mendez in [facility], 08/12/2021 15:25:48 What Is Your Level Of Alcohol Consumption? Moderate Information not available 01/27/2023 How Many Years Have You Consumed Alcohol? 35 Information not available 08/12/2021 What Is Your Level Of Caffeine Consumption? Occasional Information not available 01/27/2023 How Much Tobacco Do You Chew? None Information not available 01/03/2020 In The 14 Days Before Symptom Onset, Have You Had Close Contact With A Laboratory-confi rmed COVID-19 While That Case Was Ill? No Information not available 02/13/2020 In The 14 Days Before Symptom Onset, Have You Had Close Contact With A Person Who Is Under Investigation For COVID-19 While That Person Was Ill? No Information not available 02/13/2020 Have You Been To An Area Known To Be High Risk For COVID-19? No Information not available 02/13/2020 Are You Currently Employed? Yes Information not available 08/12/2021 Which Illicit Or Recreational Drugs Have You Used? No Information not available 01/03/2020 Do You Reside In Or Have You Traveled To An Area Where Ebola Virus Transmission Is Active? No Information not available 01/03/2020 Do You Or Have You Ever Used E-cigarettes Or Vape? Never Used Electronic Cigarettes Information not available 01/03/2020 What Is The Highest Grade Or Level Of School You Have Completed Or The Highest Degree You Have Received? [id number] Information not available 08/12/2021 Who Is Your Employer? 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 Yes Information not available 08/12/2021 To Which Gender Do You Self-identify? Female Information not available 08/12/2021 Marital Status Informatio n not available 01/03/2020 What Was The Date Of Your Most Recent Tobacco Screening? 03/11/2024 Information not available 03/11/2024 What Is Your Relationship Status? Information not available 08/12/2021 Are You Sexually Active? Yes Information not available 01/03/2020 At What Age Did You Start Smoking Tobacco? 19 Information not available 08/12/2021 Do You Or Have You Ever Used Smokeless Tobacco? Never Used Smokeless Tobacco Information not available 01/03/2020 How Much Tobacco Do You Smoke? No Information not available 08/12/2021 Do You Feel Stressed (tense, Restless, Nervous, Or Anxious, Or Unable To Sleep At Night)? [id number] Information not available 08/12/2021 Do You Use Any Illicit Or Recreational Drugs? No Information not available 08/12/2021 How Many Years Have You Smoked Tobacco? 20 Information not available 01/03/2020 Have You Recently (within The Last 12 Weeks, Or During A Current ) Traveled To Or Lived In A Zika-affected Area? No Information not available 01/03/2020 Do You Or Have You Ever Used Any Other Forms Of Tobacco Or Nicotine? No Information not available 08/12/2021 How Many Days In The Past Year Have You Consumed 4 Or More Drinks? 5 Information not available 03/11/2024 Sex: Female Functional Status Question Answer Note LastModified by Organizat ion Details LastModified Time What is your exercise level? Occasional Information not available 01/03/2020 Mental Status None recorded. Family History Relationship Description Onset Age of this Age Resolved Age Notes LastModified by Organization Details LastModified Time Mother Problem polyp of colon [email or web address] Not available 01/03/2020 11:45:18 Medical History Condition Response Anesthesia complications N High Blood Pressure N Candidate for MyRisk panel N Autoimmune Condition N Thyroid Problems Y Kidney or Bladder Problems N GI Problems Y Lung Disease N Depression N Defects or Inherited Disease N History of Ovarian Cancer N Anemia N History of Breast Cancer N DEVON exposure N BRCA testing in past N Osteopenia N Psychiatric Illness N Anxiety Disorder N Diabetes N Arthritis N Headaches or Migraines N Infertility N Asthma N History of Cancer N Endometriosis N Hepatitis N Heart Disease N Hypertension N Osteoporosis N Gynecological History Statement/Question Response If Post Menopausal, Age at Menopause 52 Age at Menarche 14 Most Recent Mammogram 12/09/2022 Obstetrics History GPAL:G 1 P 0 0 0 1 Type Value Living 1 Total 1 Immunizations Vaccine Type Date Status Note Provider Nam e and Address Organization Details Recorded Time Influenza, MDCK, quadrivalent, PF 11/22/2022 completed Lashawn Meczywor noah [facility], 03/11/2024 10:06:21 Influenza, recombinant, quadrivalent, PF 12/07/2019 completed Lashawn Meczywor null [place] [facility], 03/11/2024 10:06:21 COVID-19, mRNA, LNP-S, PF, 100 mcg/0.5mL dose or 50 mcg/0.25mL dose 04/13/2020 completed Lashawn Meczywor null [place] [facility], 03/11/2024 10:06:21 COVID-19, mRNA, LNP-S, PF, 100 mcg/0.5mL dose or 50 mcg/0.25mL dose 05/09/2020 completed Lashawn Meczywor null [place] [facility], 03/11/2024 10:06:21 COVID-19, mRNA, LNP-S, PF, 100 mcg/0.5mL dose or 50 mcg/0.25mL dose 08/07/2021 completed Lashawn Meczywor null, [place] [facility], 03/11/2024 10:06:21 COVID-19, mRNA, LNP-S, PF, 100 mcg/0.5mL dose or 50 mcg/0.25mL dose 10/28/2020 completed Lashawn Meczywor null, [place] [facility], 03/11/2024 10:06:21 COVID-19, mRNA, LNP-S, bivalent, PF, 50 mcg/0.5 mL or 25mcg/0.25 mL dose 12/18/2021 completed Lashawn Meczywor null, [place] [facility], 03/11/2024 10:06:21 COVID-19, mRNA, LNP-S, PF, geena-sucrose, 30 mcg/0.3 mL 11/22/2022 completed Lashawn Meczywor null, [place] [facility], 03/11/2024 10:06:21 Influenza, split virus, trivalent, PF 12/16/2016 completed Lashawn Meczywor null, [place] [facility], 03/11/2024 10:06:21 Influenza, split virus, trivalent, PF 01/01/2016 completed Lashawn Meczywor null, [place] [facility], 03/11/2024 10:06:21 Influenza, split virus, quadrivalent, PF 12/05/2017 completed Lashawn Meczywor null, [place] - [facility], 03/11/2024 10:06:21 Influenza, split virus, quadrivalent, PF 12/10/2020 completed Lashawn Meczywor null, [place] [facility], 03/11/2024 10:06:21 Influenza, split virus, quadrivalent, PF 12/18/2021 completed Lashawn Meczywor null, [place] 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 F17.290 Crohn's disease 22659242 K50.90 [id number] MD RE Bailey MD [address] [place], [place] [address] [address] 08/12/2021 15:15:27 08/13/2021 08:04:23 Specialized medical examination 23790999 Z01.419 Screening mammography 24 349089 Z12.31 Pain in pelvis 64702575 R10.2 [id number] MD RE Bailey MD [address] [place] [address] [place] [address] 01/27/2023 07:56:44 01/27/2023 15:53:28 Specialized medical examination 31038633 Z01.419 Screening for malignant neoplasm of rectum 509633035 Z12.12 Screening mammography 24 031569 Z12.31 Menopausal syndrome 1237 10532 N95.8 [id number] MD RE Bailey MD [address] [place], [place] [address] [place] [address] 03/11/2024 09:58:41 03/11/2024 11:56:57 Candidal vulvovaginitis 00572017 B37.31 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 Health Concerns Section Related Observation LastModified by Organization Detai ls LastModified Time None Recorded Concern Status LastModified by Organization Details LastModified Time None Recorded Advance Directives Directive None Recorded Payers Encounter Date Sequence Insurance Name Policy Number Policy Quezada Covered Member ID Quezada Member ID Guarantor Name 02/13/2020 1 [facility] IN[facility] - [facility] [id number] Keyshawn Flowers [id number] Kaley Flowers 08/12/2021 1 [facility] IN[facility] - [facility] [id number] Keyshawn Flowers [id number] Kaley Flowers 01/27/2023 1 [facility] [id number] Keyshawn Flowers [id number] Kaley Flowers 03/11/2024 1 [facility] [id number] 8 Keyshawn Flowers [id number] Kaley Flowers Notes Date Note Type Note Provider Name and Address Organization Details Recorded Time 02/13/2020 text/html She is here as a new patient for annual exam. She had a supracervical hysterectomy in the remote past for bleeding issues which worked well for her. No significant vasomotor symptoms. Mild nocturia. She has Crohn's, has an annual colonoscopy. 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 Re Clements MD [address], [place], [address], [place] [facility], 02/13/2020 15:27:25 08/12/2021 text/html She is here for annual exam, is doing well but for the past 3 days has had suprapubic vague discomfort, has Crohn's and wonders if it is that. Has had a hysterectomy. No fevers or chills. note from 2020: She is here as anew patient for annual exam. She had a supracervical hysterectomy in the remote past for bleeding issues which worked well for her.No significant vasomotor symptoms. 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 Re Clements MD [address], [place], [address], [place] [facility], 08/12/2021 17:20:17 01/27/2023 text/html She is here for annual, doing well, going to retire this year. Note from 2021: She is here for annual exam, is doing well but for the past 3 days has had suprapubic vague discomfort, has Crohn's and wonders if it is that. Has had a hysterectomy. No fevers or chills. Re Clements MD [address], [place], [address], [place] [facility], 01/27/2023 08:26:19 03/11/2024 text/html She is here for a one year history of worsening vulvar discomfort , pruritus, and occasional burning pain and dysuria. Re Clements MD [address], [place], [address], [place] [facility], 03/11/2024 11:02:45 OBGyn Episode No OBEpisode recorded.
--- OUTSIDE RECORDS SUMMARY | 2024-04-26 11:33 | XMS_ITS | Encounter Summary ---
Author Organization [facility] Address [address] [place] [address] Care Team Providers Care Gas Roller Operator Name Role Phone Justin Espinoza MD Primary Care Provider + [phone] Reason for Visit * Reason Comments OP Infusion Entyvio infusion * Episode Based Medications (Routine) - Authorized Specialty Diagnoses / Procedures Referred By Contjann t Referred To Contact Diagnoses Crohn's disease of small intestine without complication (CMS/HCC) Constantine Santos MD [address] [address] Phone: tel: fax: [facility] [address] [place] [address] Phone: tel: fax: Referral ID Status Reason Start Date Expiration Date V isits Requested Visits Authorized [id number] Authorized 02/17/2024 02/16/2025 1 12 Encounter Details Date Type Department Care Team (Latest Contact Info) Description 04/18/2024 9:30 AM EST - 04/18/2024 11:59 PM EST Hospital Encounter [facility] [address] [place] [phone] Constantine Santos MD [address] [address] Crohn's disease of small intestine without complication (CMS/HCC) (Primary Dx) Discharge Disposition: Home or Self Care Social History Tobacco Use Types Packs/Day Years [...] Sign Reading Time Taken Comments Blood Pressure 121/77 04/18/2024 9:50 AM EST Pulse 86 04/18/2024 9:50 AM EST Temperature 37.1 ??C (98.7 ??F) 04/18/2024 9:50 AM ES T Respiratory Rate 18 04/18/2024 9:50 AM EST Oxygen Saturation 97% 04/18/2024 9:50 AM EST Inhaled Oxygen Concentration - - Weight - - Height - - Body Mass Index - - documented in this encounter Medications at Time of Discharge celecoxib (CeleBREX) 100 mg capsule Take 1 capsule (100 mg total) by mouth 2 (two) times a day. 4 terconazole (TERAZOL 7) 0.4 % vaginal cream INSERT 1 APPLICATORFUL VAGINALLY EVERY DAY FOR 7 DAYS 5 triamcinolone (KENALOG) 0.1 % ointment apply 1 application topically twice a day for 30 days 5 Zepbound 2.5 mg/0.5 mL injection INJECT 0.5ML SUBCUTANEOUSLY ONE TIME PER WEEK 5 ALPRAZolam (XANAX) 0.5 mg tablet Take 1 tablet (0.5 mg total) by mouth 1 (one) time each day. for 30 days Max Daily Amount: 0.5 mg 4 atorvastatin (LIPITOR) 40 mg tablet Take 1 tablet (40 mg total) by mouth 1 (one) time each day. DULoxetine (CYMBALTA) [address] capsule Take 1 capsule (60 mg total) by mouth 1 (one) time each day. Entyvio 300 mg recon solnIndications:C rohn's disease of small intestine without complication (CMS/HCC) RECONSTITUTE WITH 4.8 ML STERILE WATER. ADD 5 ML TO 250 ML NS AND INFUSE 300 MG INTRAVENOUSLY OVER 30 MINUTES EVERY 8 WEEKS. REFRIGERATE. 300 each 2 5 levothyroxine (SYNTHROID, LEVOTHROID) 88 mcg tablet Take 1 tablet (88 mcg total) by mouth 1 (one) time each day. lisinopriL (PRINIVIL,ZESTRIL ) 20 mg tablet Take 1 tablet (20 mg total) by mouth 1 (one) time each day. RABEprazole (ACIPHEX) 20 mg EC tablet Take 1 tablet (20 mg total) by mouth 1 (one) time each day. rosuvastatin (CRESTOR) 20 mg tablet Take 1 tablet (20 mg total) by mouth 1 (one) time each day. ursodioL (ACTIGALL) 500 mg tablet Take 2 tablets (1,000 mg total) by mouth 1 (one) time each day. documented as of this encounter Discharge Disposition Disposition Code Departure Means Destination Home or Self Care documented in this encounter Progress Notes * Nevin Sykes RN - 04/18/2024 9:30 AM EST Kaley arrives ambulatory with strong steady gait for her Entyvio infusion today - feeling really good. Stable assessment completed - IV placed to left arm with no difficulty. Med released to pharmacy - resting comfortably in recliner with call meyers in reach. 1028 - Entyvio up as ordered. 1112 - Infusion completed - very well tolerated. IV flushed and removed intact. Has next appts in place. Stable upon discharge. documented in this encounter Plan of Treatment Upcoming Encounters Date Type Department Care Team (Late st Contact Info) Description 05/02/2024 9:00 AM EST Appointment [facility] Ultrasound [address] [place] [phone] 06/13/2024 9:30 AM EDT Appointment [facility] [address] [phone] Constantine Santos MD [address] [address] documented as of this encounter Visit Diagnoses Diagnosis Crohn's disease of small intestine without complication (CMS/HCC)- Primary documented in this encounter Administered Medications Inactive Administered Medications - up to 3 most recent administrations Medication Order MAR Action Action Date Dose Rate Site vedolizumab (ENTYVIO) 300 mg in sodium chloride 0.9 % 255 mL IVPB 300 mg, intravenous, at 510 mL/hr, Administer over 30 Minutes, Once, On 04/18/24 at 1015, For 1 doseIndications:Crohn's disease of small intestine without complication (CMS/HCC) New Bag 04/18/2024 10:28 AM EST 300 mg 510 mL/hr documented in this encounter Historical Medications * This list may reflect changes made after this encounter. atorvastatin (LIPITOR) 40 mg tablet Take 1 tablet (40 mg total) by mouth 1 (one) time each day. celecoxib (CeleBREX) 100 mg capsule Take 1 capsule (100 mg total) by mouth 2 (two) times a day. 07/01/2023 terconazole (TERAZOL 7) 0.4 % vaginal cream INSERT 1 APPLICATORFUL VAGINALLY EVERY DAY FOR 7 DAYS 03/11/2024 triamcinolone (KENALOG) 0.1 % ointment apply 1 application topically twice a day for 30 days 03/11/2024 Zepbound 2.5 mg/0.5 mL injection INJECT 0.5ML SUBCUTANEOUSLY ONE TIME PER WEEK 03/29/2024 added in this encounter Orders Medications Ordered That Ashok ht Not Have Been Administered Count Last Ordered Date First Ordered Date vedolizumab (ENTYVIO) 300 mg in sodium chloride 0.9 % 255 mL IVPB 1 04/18/2024 Nursing Count Last Ordered Date First Orde red Date ONC NURSING COMMUNICATION 5 1 04/18/2024 documented in this encounter Care Teams Gas Roller Operator Relationship Specialty Start Date End Date Justin Espinoza MD [address] [place] [id number] PCP - General 09/30/12 documented as of this encounter
--- OUTSIDE RECORDS SUMMARY | 2024-04-26 11:33 | XMS_ITS | Data Portability ---
Author Organization [place] [facility] Address [address] [place] [id number] Care Team Providers Care Lead Die Molder Name Role Phone NICOLE ROPER Primary Care Provider Assessment Encounter Date Assessment Date Assessment LastModified by Organization Details LastModified Time 11/14/2019 11/14/2019 Overview/History : 58yoF known to pmx HTN, HDL and crohns disease is seen for nasal congestion, sore throat and sig sinus pressure for approx 14 days. Patient was given a Rx for Bactrim from an urgent care with little relief. She has been using OTC medications but again her symptoms have continued. She denies any fevers. The patient does have a hx of sinus infections in the past, most recently 6 months ago. Exam: VSS patient well appearing Heart and lung sounds clear sinus tenderness over R frontal and maxillary sinus clear fluid noted behind R TM no nuchal rigidity pharynx without redness or exudates DDx considered, but not limited to: acute sinusitis vital infection patient is not demonstrating any signs of strep pharyngitis, otitis media or meningitis Work up/Results: none at this time Plan/Discussion: Patient is hemodynamically stable non toxic appearing seen for approx 2 weeks of nasal congestion and facial pain. Patient has a hx of crohns and states she cannot tolerate Augmentin or Doxycycline but can tolerate Amoxicillin. Will begin abx and have the patient follow up with her PCP and possibly ENT if she continues to develop these symptoms. Patient instructed to again seek medical care if her symptoms worsen or she develops a fever or increased pain. The patient verbalized understanding and was agreeable with overall plan. Proper Personal Protective Equipment (PPE), including gloves, eye protection and masks were donned and doffed appropriately and all equipment cleaned using approved technique with germicidal disposable wipes prior to and after care of this patient according to [facility]'s infection prevention protocols. Time On Scene with Patient: 00:22:59 Not available 11/14/2019 15:14:31 08/14/2020 08/14/2020 DDX: sinusitis, allergic sinusitis, viral sinusitis, chronic sinusitis, Pt has been having recurrent sinus symptoms. She has not had any imaging of her sinuses nor her head to evaluate anatomical concerns, defects or signs of chronic sinusitis. Pt is well appearing and has completed antibiotics with no significant improvement. Will not treat with antibiotics at this time. Will prescribe burst of prednisone to assess helpfulness for patient's symptoms. Further wish to obtain imaging to assess anatomy for any physical cause for patient's symptoms. Pt is agreeable with this plan at this time. Pt verbalized understanding that she should go to the ED with any worsening symptoms, dizziness, worsening headache, shortness of breath, fevers. Pt ambulating in the living room at completion of visit, In good spiirits. Will call the CT department at [facility] in morning to facilitate scheduling of CT head without contrast. Not available 08/14/2020 20:51:36 Plan of Treatment Reminders Order Date Submit Date Provider Last Modified By Organization Details Last Modified Time Details Appointments None recorded. Lab None recorded. Referral None recorded. Procedures None recorded. Surgeries None recorded. Imaging CT, head, w/o contrast - sinus pain and intermitte nt dizziness x 2 weeks. Bactrim completed and no better. HX of same and concern for structural defects vs chronic sinusitis 2020 021 [facility] (Ct Scan), [address] [place], [address], 1 08:03:39 Medication Orders prednisone 20 mg tablet 2020 021 [id number], [address] [place], [address], 1 14:49:13 amoxicilli n 875 mg tablet 2019 020 [id number], [address] [place], [address], 0 14:49:23 Medrol (Cristian) 4 mg tablets in a dose pack 2019 020 INTERFACE [id number], [address] [facility], [place], [address], 0 14:49:22 Patient TargetsNo targets recorded. Patient Instructions Encounter Date Encounter Id Patient Instructions Last Modified By Organization Details Last Modified Time 11/14/2019 [id number] TAKE THE MEDICATION DIRECTED AND COMPLETE THE ENTIRE COURSE TAKE THE STEROIDS WITH FOOD IF YOU CONTINUE TO GET SINUS INFECTIONS YOU MAY WANT TO FOLLOW UP WITH AN ENT PHYSICIAN DRINK PLENTY OF FLUIDS PLEASE AGAIN SEEK MEDICAL CARE IF YOUR SYMPTOMS WORSEN Thank you for your visit with [facility] today. We cannot always find the exact cause of your symptoms during your initial visit. Please follow up with your primary care provider or specialist as needed to be rechecked or seek medical attention if your symptoms do not go away or get worse. If you develop any new or worsening symptoms and need after hours care, please go to nearest ER and/or call 911. If you have additional concerns or develop a change in your condition between 8am-10pm, please call [facility] at [phone] to help navigate your care. [email or web address] Not available 11/14/2019 14:50:22 08/14/2020 [id number] chronic sinusiti s: care instructions Not available 08/14/2020 20:07:47 [facility] came to your home for evaluation of sinus pain and intermittent dizziness. You finished the antibiotics and you had return of symptoms. Further you have this dizziness that has been ongoing and you don't feel well We discussed your symptoms and we are trying to get a CT scan of your head to better assess your sinuses. You should also get an appointment with ENT. We also sent a prescription for steroids to your pharmacy to try. Please continue with your medications. Drink plenty of fluids. If you feel symptoms get worse, please follow up with your PCP ,get re-evaluated or go to the emergency department. Thank you for your visit with [facility] today. We cannot always find the exact cause of your symptoms during your initial visit. Please follow up with your primary care provider or specialist within 12-24 hours within 24-48 hours to be rechecked or seek medical attention if your symptoms do not go away or get worse. If you develop any new or worsening symptoms and need after hours care, please go to nearest ER and/or call 911. If you have additional concerns or develop a change in your condition between 8am-10pm, [facility] at [phone] to help navigate your care. [email or web address] Not available 08/14/2020 20:14:46 11/15/2020: 1305 : Prior authorization obtained after multiple phone calls: CT HEAD without contrast - Order or authorization #: [id number] Vaild from 08/12/2020 thru 09/13/2020. CT to be done at [facility] at [address] [place] [address]. Pt has order of test in hand. Called with date and time. Not available 08/15/2020 13:10:24 Reason for Referral None Reported. Results Created Date Observation Date Name Description Value Unit Range Abnormal Flag Note LastModifiedBy Organization Detail LastModifiedTime 08/29/19 21 08/25/2020 CT, maxil lofac ial, w/o contr ast No observ ation record ed. [address] ([facility] Scan) [address] [place] [address], [address], 08/28/2020 08:14:31 Result Notes None recorded. Procedures Surgical History Date Name Laterality Status Provider Name and Address Organization Details Recorded Time surgical procedure on cervical spine completed RADHA UGALDE [address] [place], [address], [place] [facility] 11/14/2019 14:37:45 hysterectomy completed RADHA UGALDE [address] [place], [address], [place] [facility] 11/14/2019 14:38:02 Imaging Results Imaging Date Name Status LastModified by Organiz ation Details LastModified Time 08/25/2020 CT, maxillofacial , w/o contrast completed [address] ([facility]) [address] [place] [address], [address], 08/28/2020 08:14:31 Procedure Notes None recorded. Medical Equipment None Reported. Allergies No known drug allergies Medications Name Sig Start Date Stop Date Status Note LastModified by Organization Details LastModified Time atorvastatin 40 mg tablet TAKE 1 TABLET BY MOUTH EVERY DAY active Not Available Not Available No t Available rabeprazole 20 mg tablet,delay ed release TAKE 1 TABLET BY MOUTH EVERY DAY active Not Available Not Available No t Available pravastatin 40 mg tablet TAKE 1 TABLET BY MOUTH EVERY DAY active Not Available Not Available No t Available fluconazole 150 mg tablet TAKE 1 TABLET BY MOUTH FOR 1 DOSE IF SYMPTOMS OF YEAST INFECTION active Not Available Not Available No t Available lisinopril 20 mg tablet TAKE 1 TABLET BY MOUTH EVERY DAY active Not Available Not Available No t Available prednisone 20 mg tablet Take 2 tablets every day by oral route for 5 days. 2020 active Not Available Not Available Not Avai lable sulfamethoxa zole 800 mg-trimethop rim 160 mg tablet TAKE 1 TABLET BY MOUTH EVERY 12 HOURS FOR 7 DAYS active Not Available Not Available N ot Available levothyroxin e 75 mcg tablet TAKE 1 TABLET BY MOUTH EVERY DAY active Not Available Not Available No t Available levothyroxin e 88 mcg tablet TAKE 1 TABLET BY MOUTH EVERY DAY active Not Available Not Available No t Available alprazolam 0.5 mg tablet TAKE 1 TABLET BY MOUTH EVERY 12 HOURS NEEDED active Not Available Not Available No t Available amoxicillin 875 mg tablet TAKE 1 TABLET BY MOUTH EVERY 8 HOURS FOR 5 DAYS active Not Available Not Available No t Available methylpredni solone 4 mg tablets in a dose pack TAKE 6 TABLETS ON DAY 1 DIRECTED ON PACKAGE AND DECREASE BY 1 TAB EACH DAY FOR A TOTAL OF 6 DAYS active Not Available Not Available No t Available fluticasone propionate 50 mcg/actuatio n nasal spray,suspen yelitza SPRAY 1 SPRAY INTO EACH NOSTRIL TWICE A DAY active Not Available Not Available Not Available rosuvastatin 10 mg tablet TAKE 1 TABLET BY MOUTH EVERY DAY active Not Available Not Available No t Available duloxetine 60 mg capsule,etta yed release TAKE 1 CAPSULE BY MOUTH EVERY DAY active Not Available Not Available No t Available ursodiol 500 mg tablet TAKE 2 TABLETS BY MOUTH EVERY DAY active Not Available Not Available No t Available AcipHex active Not Available Not Avail able Not Available Keri Allergy active Not Available Not Available Not Available Plenvu 140 gram-9 gram-5.2 gram powder packs TAKE 3 PACKET BY MOUTH DIRECTED FOLLOW INSTRUCTION S PROVIDED BY DOCTOR IN OFFICE active Not Available Not Available No t Available Vitals Date Recorded Heart rate Oxygen saturation Oxygen saturation in Arterial blood by Pulse oximetry Body temperature Respiratory rate Systolic blood pressure Diastolic blood pressure Provider Name and Address Organization Details Last Updated DateTime 0 90 /min 100 % 100 % 96.5 [degF] 14 /min 130 mm[Hg] 88 mm[Hg] Not Available [facility] 0 14:36:53 Date Recorded Respiratory rate Heart rate Body temperature Oxygen saturation Oxygen saturation in Arterial blood by Pulse oximetry Systolic blood pressure Diastolic blood pressure Provider Name and Address Organization Details Last Updated DateTime 1 20 /min 99 /min 98.9 [degF] 97 % 97 % 120 mm[Hg] 72 mm[Hg] Not Available [facility] 1 19:56:14 Social History Question Answer Notes LastModified by Organizat ion Details LastModified Time Tobacco Smoking Status Former Smoker quit 6 months ago [facility] [address] [facility] [place], [address], [place] [facility] 11/14/2019 14:36:18 Do You Have An Advance Directive? No [email or web address] Information not available 11/14/2019 What Is Your Code Status? Full Code [email or web address] Information not available 11/14/2019 Within The Past 12 Months, Has It Happened That The Food You Bought Just Didn't Last And You Didn't Have Money To Get More. No [email or web address] Information not available 11/14/2019 Within The Past 12 Months, Have You Worried That Your Food Would Run Out Before You Got Money To Buy More. No [email or web address] Information not available 11/14/2019 Fall Risk: Do You Feel Unsteady When Standing Or Walking? No [email or web address] Information not available 11/14/2019 We Know That How And When People Interact With Friends And Family Can Be Very Different From Person To Person. How Often Do You Have The Opportunity To See Or Talk To People That You Care About And Feel Close To? (Ex: Talking To Friends On The Phone Or Visiting Friends Or Family Or Going To Jewish Or Club Meetings) 5 Or More Times Per Week [email or web address] Information not available 11/14/2019 Excessive Alcohol Or Drug Use No Information not available 11/14/2019 We Know From Many Of Our Patients That Covering All Of Their Costs Can Be Difficult At Times. This Can Cause Stress And Impact Health. In The Past Year, Have You Been Unable To Get Any Of The Following When It Was Really Needed? No [email or web address] Information not available 11/14/2019 What Is Your Housing Situation Today? I Have Housing Information not available 11/14/2019 Would You Like Help Connecting To Resources? None [email or web address] Information not available 11/14/2019 Sex: Unknown Functional Status None recorded. Mental Status None recorded. Family History Relationship Description Onset Age of this Age Resolved Age Notes LastModified by Organization Details LastModified Time Father No current problems or disability [email or web address] Not available 11/13 14:36:06 Mother No current problems or disability Not available 11/13 14:36:06 Medical History Condition Response Diabetes N Coronary Artery Disease N High Cholesterol Y Cancer N Pulmonary Embolism N Stroke N Hypertension Y Depression Y COPD N Asthma N Kidney Disease N Gynecological HistoryNo gynecological history recorded. Obstetrics History GPAL:G 0 P 0 0 0 0 Past Encounters Encounter ID Performer Location Encounter Start Date Encounter Closed Date Diagnosis/Indication Diagnosis SNOMED-CT Code Diagnosis ICD10 Code Diagnosis Note [id number] RADHA UGALDE [facility] [address] [place] [address] 11/14/2019 14:23:49 11/14/2019 15:25:37 Acute sinusitis 19042410 J01.90 [id number] ABDIEL JARQUIN NP [facility] [address] [place] [address] 08/14/2020 19:50:04 08/14/2020 20:55:18 Headache 30719100 R51.9 Health Concerns Section Related Observation LastModified by Organization Detai ls LastModified Time None Recorded Concern Status LastModified by Organization Details LastModified Time None Recorded Advance Directives Directive N: Payers Encounter Date Sequence Insurance Name Policy Number Policy Quezada Covered Member ID Quezada Member ID Guarantor Name 11/14/2019 1 [facility] INDEMNITY [facility] - [facility] [id number] [address] [id number] 08/14/2020 1 [facility] INDEMNITY PLAN - [employer] [id number] [address] [id number] Notes Date Note Type Note Provider Name and Address Organization Details Recorded Time 11/14/2019 text/html 58yo F new to pmhx hypothyroidism, chiari malformation sp posterior fossa reconstruction, and crohns is seen for facial pain. Patient reports 13 days of nasal congestion, ear fullness and facial pain. Seven days ago she was placed on Bactrim with little relief. She has been using Flonase, Keri, pseudoephed and a neti pot. Denies an fever or sick contact. Mild cough without cp or sob. Slight sore throat. Patient reports a hx of sinus infections, most recently 6 months ago. RADHA UGALDE [address], [place], [address], [place] [facility] 11/14/2019 15:14:38 08/14/2020 text/html 59 year-old fema jessica with history of Crohn;s, hypothyrodism, HTN, HLD, who calls to her home for evaluation of continues sinus problems. Pt was seen by urgent care about 2 weeks ago. She was having facial pain, headaches, intermittent dizziness, ear fullness and just not feeling well. She was started on a course of antibiotics (Bactrim) and steroids.She finished these yesterday and finds the symptoms, though slighlty better, have been getting worse since stopping the antibiotics. She doesn't feel this is normal for her. She denies fevers, falls, vison changes. She sometimes feels her balance is off. She denies any nasal discharge. She has been having postnasal drip. She continues to take flonase, zyrtec, mucinex but finds this does not help her symptoms. She has an appointment with an marine structural designer next week and she has a good relationship with her PCP who is following her. ABDIEL JARQUIN NP [address], [place], [address], [place] [facility] 05/24/2021 10:01:49 OBGyn Episode No OBEpisode recorded.
--- OUTSIDE RECORDS SUMMARY | 2024-04-26 11:33 | XMS_ITS | Clinical Summary ---
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 for 30 days Max Daily Amount: 0.5 mg 01/29/20 Active DULoxetine (CYMBALTA) [address] capsule Take 1 capsule (60 mg total) by mouth 1 (one) time each day. Active levothyroxine (SYNTHROID, LEVOTHROID) 88 mcg tablet Take 1 tablet (88 mcg total) by mouth 1 (one) time each day. Active lisinopriL (PRINIVIL,ZESTRI L) 20 mg tablet Take 1 tablet (20 mg total) by mouth 1 (one) time each day. Active rosuvastatin (CRESTOR) 20 mg tablet Take 1 tablet (20 mg total) by mouth 1 (one) time each day. Active RABEprazole (ACIPHEX) 20 mg EC tablet Take 1 tablet (20 mg total) by mouth 1 (one) time each day. Active ursodioL (ACTIGALL) 500 mg tablet Take 2 tablets (1,000 mg total) by mouth 1 (one) time each day. Active Entyvio 300 mg recon solnIndications: Crohn's disease of small intestine without complication (CMS/HCC) RECONSTITUTE WITH 4.8 ML STERILE WATER. ADD 5 ML TO 250 ML NS AND INFUSE 300 MG INTRAVENOUSLY OVER 30 MINUTES EVERY 8 WEEKS. REFRIGERATE. 300 each 2 03/22/19 25 Active Zepbound 2.5 mg/0.5 mL injection INJECT 0.5ML SUBCUTANEOUSLY ONE TIME PER WEEK 03/29/19 25 Active triamcinolone (KENALOG) 0.1 % ointment apply 1 application topically twice a day for 30 days 03/11/19 25 Active terconazole (TERAZOL 7) 0.4 % vaginal cream INSERT 1 APPLICATORFUL VAGINALLY EVERY DAY FOR 7 DAYS 03/11/19 25 Active celecoxib (CeleBREX) 100 mg capsule Take 1 capsule (100 mg total) by mouth 2 (two) times a day. 07/01/19 24 Active atorvastatin (LIPITOR) 40 mg tablet Take 1 tablet (40 mg total) by mouth 1 (one) time each day. Active Active Problems Problem Noted Date Diagnosed Date Crohn's disease of small intestine 02/17/2024 Encounters Date Type Department Care Team Description 04/18/2024 9:30 AM EST - 04/18/2024 11:59 PM EST Hospital Encounter [facility] [address] [place] [phone] Constantine Santos MD Crohn's disease of small intestine without complication (CMS/HCC) (Primary Dx) Discharge Disposition: Home or Self Care 02/22/2024 9:24 AM EST - 02/22/2024 11:59 PM EST Hospital Encounter [facility] [address] [place] [phone] Crohn's disease of small intestine without complication (CMS/HCC) (Primary Dx) Discharge Disposition: Home or Self Care 02/17/2024 Telephone Gastroenterology - [address] [place] [phone] Constantine Santos MD Request For Order(s) from Last 3 Months Surgical History Surgery Date Site/Laterality Comments SECTION PROCEDURE: AR DELIVERY ONLY; COMMENT: x1 TONSILLECTOMY ADENOIDECTOMY, BILATERAL MYRINGOTOMY AND TUBES PROCEDURE: AR TONSILLECTOMY & ADENOIDECTOMY <AGE 14 Medical History Medical History Date Comments Other and unspecified noninf ectious gastroenteritis and colitis(558.9) DX:Other and unspec ified noninfectious gastroenteritis and colitis(558.9); COMMENT: ibd Family History Medical History Relation Name Comments Colon cancer Mother precancerous Hyperlipidemia Mother Relation Name Status Comments Brother Alive Father Alive Maternal Grandfather Maternal Grandmother Mother Alive Paternal Grandfather Paternal Grandmother Sister Alive Son Alive Social History Tobacco Use Types Packs/Day Years [...] Orientation Straight 2023 10 :41 AM EDT Obstetrics History Last Filed Vital Signs Vital Sign Reading Time Taken Comments Blood Pressure 121/77 04/18/2024 9:50 AM EST Pulse 86 04/18/2024 9:50 AM EST Temperature 37.1 ??C (98.7 ??F) 04/18/2024 9:50 AM ES T Respiratory Rate 18 04/18/2024 9:50 AM EST Oxygen Saturation 97% 04/18/2024 9:50 AM EST Inhaled Oxygen Concentration - - Weight 87 kg (191 lb 12.8 oz) 07/13/2023 9:34 AM EDT Height - - Body Mass Index - - Plan of Treatment Upcoming Encounters Date Type Department Care Team (Late st Contact Info) Description 05/02/2024 9:00 AM EST Appointment [facility] [address] [place] [phone] 06/13/2024 9:30 AM EDT Appointment [facility] [address] [phone] Constantine Santos MD [address] [address] Health Maintenance Due Date Last Done Comments Breast Cancer Screening 1962 DTaP,Tdap,and Td Vaccines (1 - Tdap) 1981 Pneumococcal Vaccine: 50+ Years (1 of 2 - PCV) 1981 Pneumococcal Vaccine: Pediatrics (0 to 5 Years) and At-Risk Patients (6 to 64 Years) (1 of 2 - PCV) 1981 Cervical Cancer Screening: P ap Smear 12/31/1983 Zoster Vaccines (1 of 2) 2012 Cholesterol Screening (Lipid Panel) 02/05/2022 Colorectal Cancer Screening: Colonoscopy 02/05/2022 Depression Screening 02/05/2022 HIV Screening 02/05/2022 Hepatitis C Screening 02/05/2022 Social Influencers of Health Screening 02/05/2022 COVID-19 Vaccine (1 - 2023-2 5 season) 2023 Influenza Vaccine (#1) 2023 0, 03/27/2015 Hypertension/CHF/CAD Annual BMP Blood Test 01/20/2025 01/21/2024, 10/14/2017 RSV Immunization Patients 60 + Years Old (1 - 1-dose 75+ series) 2037 HIB Vaccines Aged Out No longer eligi ble based on patient's age to complete this topic HPV Vaccines Aged Out No longer eligi ble based on patient's age to complete this topic Hepatitis A Vaccines Aged Out No long er eligible based on patient's age to complete this topic Hepatitis B Vaccines Aged Out No long er eligible based on patient's age to complete this topic IPV Vaccines Aged Out No longer eligi ble based on patient's age to complete this topic MMR Vaccines Aged Out No longer eligi ble based on patient's age to complete this topic Meningococcal ACWY Vaccine Aged Out N o longer eligible based on patient's age to complete this topic Meningococcal B Vacine Aged Out No lo nger eligible based on patient's age to complete this topic RSV Immunization Patients Under 20 months Aged Out No longer eligible b ased on patient's age to complete this topic Varicella Vaccines Aged Out No longer eligible based on patient's age to complete this topic Procedures Procedure Name Priority Date/Time Associated Diagnosis Comments COMPREHENSIVE METABOLIC PANEL Routine 01/21/2024 2:17 PM EST Cholangitic cirrhosis (CMS/HCC) from Last 3 Months or Most Recently Relevant to Health Maintenance Results * (ABNORMAL) Comprehensive metabolic panel (01/21/2024 2:17 PM EST) Sodium 140 133 - 145 mmol/L LAB CHEMISTRY METHOD 01/21/2024 6:50 PM [facility] Potassium 4.3 3.5 - 5.5 mmol/L LAB CHEMISTRY METHOD 01/21/2024 6:50 PM [facility] Chloride 109 96 - 110 mmol/L LAB CHEMISTRY METHOD 01/21/2024 6:50 PM [facility] CO2 25 21 - 32 mmol/L LAB CHEMISTRY METHOD 01/21/2024 6:50 PM [facility] Anion Gap 6 3 - 11 LAB CHEMISTRY METHOD 01/21/2024 6:50 PM [facility] Glucose 93 70 - 100 mg/dL LAB CHEMISTRY METHOD 01/21/2024 6:50 PM [facility] BUN 17 5 - 25 mg/dL LAB CHEMISTRY METHOD 01/21/2024 6:50 PM [facility] Creatinine 0.92 0.50 - 1.10 mg/dL LAB CHEMISTRY METHOD 01/21/2024 6:50 PM [facility] eGFR 71 >=60 mL/min/1. 73m2 LAB CHEMISTRY METHOD 01/21/2024 6:50 PM [facility] Comment:Calculation based on the??Chronic Kidney Disease Epidemiology Collaboration (CKD-EPI) equation refit??without adjustment for race. BUN/Creatinine Ratio 18.5 LAB CHEMISTRY METHOD 01/21/2024 6:50 PM [facility] Calcium 10.1 8.5 - 10.5 mg/dL LAB CHEMISTRY METHOD 01/21/2024 6:50 PM [facility] AST (SGOT) 22 10 - 42 unit/L LAB CHEMISTRY METHOD 01/21/2024 6:50 PM [facility] ALT (SGPT) 30 10 - 60 unit/L LAB CHEMISTRY METHOD 01/21/2024 6:50 PM EST [facility] Alkaline Phosphatase 142(H) 42 - 121 unit/L LAB CHEMISTRY METHOD 01/21/2024 6:50 PM EST [facility] Total Protein 7.0 6.0 - 8.0 g/dL LAB CHEMISTRY METHOD 01/21/2024 6:50 PM EST [facility] Albumin 4.2 3.2 - 5.0 g/dL LAB CHEMISTRY METHOD 01/21/2024 6:50 PM [facility] Total Bilirubin 0.4 0.0 - 1.4 mg/dL LAB CHEMISTRY METHOD 01/21/2024 6:50 PM [facility] Blood Venous blood specimen / Unknown Venipuncture / Unknown 01/21/2024 2:17 PM EST 01/21/2024 2:17 PM EST us Constantine Santos MD LAB BLOOD ORDERABLES [facility] [address] [place] [address], from Last 3 Months or Most Recently Relevant to Health Maintenance Insurance [facility] Care Teams 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
== END 2024-04-26 11:18 | disposition home or self-care (01) ==
PROVIDERS: PCP Internal Medicine; Visit Provider Hospitalist
DX: G47.33 Obstructive sleep apnea (adult) (pediatric) (principal); J98.11 Atelectasis; R91.8 Other nonspecific abnormal finding of lung field; R05.3 Chronic cough
CPT/HCPCS: 99214

== ENCOUNTER → 2024-04-26 10:32 | Outpatient (BNVA) | payer OTHER, SELFPAY | PROVIDERS: PCP Internal Medicine; Visit Provider Hospitalist ==